=== PATIENT | male | born 2000 | race African-American/Black ===

== ENCOUNTER 2023-08-24 09:57 | Emergency (ER) | payer MEDICAID ==
[~2023-08-24] VITALS: Ht 177.8 cm; Wt 86.2 kg
[2023-08-24] MEDS ORDERED: CYCL5TAB PO (11:08)
[2023-08-24] MEDS ORDERED: CYCLOBENZAPRINE 10 MG TABLET ONE (11:44)
[2023-08-24] MEDS ORDERED: IBUPROFEN 600 MG TABLET ONE (11:45)
[2023-08-24] MEDS: IBUPROFEN 600 MG TABLET PO ONE (11:47)
[2023-08-24] MEDS: CYCLOBENZAPRINE 10 MG TABLET PO ONE (11:47)
[2023-08-24 12:17] VITALS: BP 118/60; TEMP 98.2; O2SAT 100
== END 2023-08-24 12:17 | disposition home or self-care (01) ==
LOC: ER 09:57
DX: M54.50 Low back pain, unspecified (principal)

== ENCOUNTER 2023-09-07 09:58 | Emergency (ER) | payer MEDICAID ==
[~2023-09-07] VITALS: Ht 177.8 cm; Wt 86.6 kg
[~2023-09-07 09:58] MED LIST: CYCL5TAB PO
[2023-09-07 10:14] VITALS: BP 137/71; TEMP 98.7; O2SAT 100
[2023-09-07] MEDS ORDERED: KETOROLAC TROMETHAMINE INJ 30 MG/ML VIAL ONE (10:28)
[2023-09-07] MEDS ORDERED: BACLOFEN (10 MG) 10 MG TABLET ONE ×2 (10:29→10:31)
[2023-09-07] MEDS: BACLOFEN (10 MG) 10 MG TABLET PO ONE (10:33)
[2023-09-07] MEDS: KETOROLAC TROMETHAMINE INJ 30 MG/ML VIAL IM ONE (10:33)
[2023-09-07] MEDS ORDERED: TRAM-351 PO (11:18)
[2023-09-07] MEDS ORDERED: KETO10TA2 PO (11:18)
[2023-09-07] MEDS ORDERED: BACL20TA PO (11:18)
== END 2023-09-07 11:25 | disposition home or self-care (01) ==
LOC: ER 10:00
DX: M54.41 Lumbago with sciatica, right side (principal); Z60.2 Problems related to living alone
CPT/HCPCS: 99283; 96372; J1885

== ENCOUNTER 2023-10-11 05:53 | Emergency (ER) | payer MEDICAID, OTHER ==
[~2023-10-11] VITALS: Ht 177.8 cm; Wt 81.6 kg
[~2023-10-11 05:53] MED LIST changes: +BACL20TA PO; +KETO10TA2 PO; +TRAM-351 PO
[2023-10-11] MEDS ORDERED: LIDO30AD10 TP (06:29)
[2023-10-11] MEDS ORDERED: METH-649 PO (06:29)
[2023-10-11] MEDS ORDERED: IBUP-1490 PO (06:29)
[2023-10-11] MEDS ORDERED: METHOCARBAMOL (500MG) 500 MG TABLET ONE (06:37)
[2023-10-11] MEDS: METHOCARBAMOL (750MG) 750 MG TABLET PO SCH (06:40)
[2023-10-11 06:42] VITALS: BP 147/96; TEMP 98.1; O2SAT 98
== END 2023-10-11 06:42 | disposition home or self-care (01) ==
LOC: ER 05:54
DX: M54.31 Sciatica, right side (principal); Z60.2 Problems related to living alone

== ENCOUNTER 2023-10-13 02:47 | Emergency (ER) | payer MEDICAID, OTHER ==
[~2023-10-13] VITALS: Ht 177.8 cm; Wt 81.6 kg
[~2023-10-13 02:47] MED LIST changes: +IBUP-1490 PO; +LIDO30AD10 TP; +METH-649 PO
[2023-10-13 02:57] VITALS: BP 141/91; TEMP 98.5; O2SAT 99
[2023-10-13] MEDS ORDERED: KETOROLAC TROMETHAMINE 15 MG/ML VIAL ONE (03:43)
[2023-10-13] MEDS ORDERED: CYCLOBENZAPRINE 10 MG TABLET ONE (03:43)
[2023-10-13] MEDS ORDERED: CYCL10TA9 PO (03:44)
[2023-10-13] MEDS ORDERED: KETO10TA2 PO (03:44)
[2023-10-13] MEDS: KETOROLAC TROMETHAMINE 15 MG/ML VIAL IM ONE (03:49)
[2023-10-13] MEDS: CYCLOBENZAPRINE 10 MG TABLET PO ONE (03:50)
== END 2023-10-13 03:59 | disposition home or self-care (01) ==
LOC: ER 02:49
DX: M54.41 Lumbago with sciatica, right side (principal); Z60.2 Problems related to living alone
CPT/HCPCS: 99283; 96372; J1885

== ENCOUNTER 2023-10-27 07:41 | Emergency (ER) | payer OTHER ==
[~2023-10-27] VITALS: Ht 177.8 cm; Wt 81.6 kg
[~2023-10-27 07:41] MED LIST changes: +CYCL10TA9 PO
[2023-10-27 07:50] VITALS: BP 133/89; TEMP 98.3; O2SAT 98
[2023-10-27] MEDS ORDERED: oxyCODONE/APAP (5/325 MG) 1 UDTAB TABLET ONE (08:11)
[2023-10-27] MEDS ORDERED: LIDOCAINE 5% (PATCH) 1 EA PATCH TP ONE (08:11)
[2023-10-27] MEDS ORDERED: KETOROLAC TROMETHAMINE INJ 30 MG/ML VIAL ONE (08:12)
[2023-10-27] MEDS: KETOROLAC TROMETHAMINE INJ 30 MG/ML VIAL IM ONE (08:18)
[2023-10-27] MEDS: LIDOCAINE 5% (PATCH) 1 EA PATCH TP ONE (08:19)
[2023-10-27] MEDS: oxyCODONE/APAP (5/325 MG) 1 UDTAB TABLET PO ONE ×2 (08:19→09:35)
[2023-10-27] MEDS ORDERED: METH4TAB17 PO (09:09)
[2023-10-27] MEDS ORDERED: GABA-532 PO (09:09)
== END 2023-10-27 09:37 | disposition home or self-care (01) ==
LOC: ER 07:43
DX: M54.41 Lumbago with sciatica, right side (principal); Z60.2 Problems related to living alone
CPT/HCPCS: 99283; 96372; J1885

== ENCOUNTER 2023-11-04 11:28 | Emergency (ER) | payer OTHER ==
[~2023-11-04] VITALS: Ht 177.8 cm; Wt 83.9 kg
[~2023-11-04 11:28] MED LIST changes: +GABA-532 PO; +METH4TAB17 PO
[2023-11-04] MEDS ORDERED: KETOROLAC TROMETHAMINE 15 MG/ML VIAL ONE (12:11)
[2023-11-04] MEDS ORDERED: LIDOCAINE 5% (PATCH) 1 EA PATCH TP ONE (12:11)
[2023-11-04] MEDS ORDERED: CYCLOBENZAPRINE 10 MG TABLET ONE (12:12)
[2023-11-04] MEDS ORDERED: ACETAMINOPHEN 325 MG TABLET ONE (12:12)
[2023-11-04] MEDS: KETOROLAC TROMETHAMINE 15 MG/ML VIAL IM ONE (12:19)
[2023-11-04] MEDS: ACETAMINOPHEN 325 MG TABLET PO ONE (12:20)
[2023-11-04] MEDS: CYCLOBENZAPRINE 10 MG TABLET PO ONE (12:20)
[2023-11-04] MEDS: LIDOCAINE 5% (PATCH) 1 EA PATCH TP STA (12:20)
[2023-11-04] MEDS ORDERED: LIDO30AD10 TP (13:43)
[2023-11-04] MEDS ORDERED: METH4TAB17 PO (13:43)
[2023-11-04] MEDS ORDERED: CYCL5TAB PO (13:43)
[2023-11-04] MEDS ORDERED: IBUP-1955 PO (13:43)
[2023-11-04] MEDS ORDERED: GABA-532 PO (13:48)
[2023-11-04 14:25] VITALS: BP 138/90; TEMP 98.8; O2SAT 98
== END 2023-11-04 14:26 | disposition home or self-care (01) ==
LOC: ER 11:28
DX: G89.29 Other chronic pain (principal); M54.41 Lumbago with sciatica, right side; Z60.2 Problems related to living alone
CPT/HCPCS: 99284; 96372; J1885

== ENCOUNTER 2023-11-09 07:25 | Emergency (ER) | payer MEDICAID ==
[~2023-11-09] VITALS: Ht 177.8 cm; Wt 83.9 kg
[~2023-11-09 07:25] MED LIST changes: +IBUP-1955 PO
[2023-11-09 07:35] VITALS: BP 134/74; TEMP 98.2; O2SAT 99
[2023-11-09] MEDS ORDERED: IBUP-1957 PO (07:42)
[2023-11-09] MEDS ORDERED: CAPS1ADH5 TP (07:42)
== END 2023-11-09 07:59 | disposition home or self-care (01) ==
LOC: ER 07:53
DX: M54.41 Lumbago with sciatica, right side (principal); Z79.1 Long term (current) use of non-steroidal anti-inflammatories (NSAID); Z79.899 Other long term (current) drug therapy

== ENCOUNTER 2023-11-25 06:42 | Emergency (ER) | payer MEDICAID ==
[~2023-11-25] VITALS: Ht 177.8 cm; Wt 86.2 kg
[~2023-11-25 06:42] MED LIST changes: +CAPS1ADH5 TP; +IBUP-1957 PO
[2023-11-25 07:04] VITALS: BP 137/84; TEMP 98.5; O2SAT 99
[2023-11-25] MEDS ORDERED: NAPR-1009 PO (07:10)
== END 2023-11-25 07:16 | disposition home or self-care (01) ==
LOC: ER 06:42
DX: M54.31 Sciatica, right side (principal); F19.10 Other psychoactive substance abuse, uncomplicated; Z60.2 Problems related to living alone